=== PATIENT | female | born 1995 | race American Indian/Alaskan Native ===

== ENCOUNTER 2017-10-04 17:30 | Emergency (ER) | payer OTHER ==
[2017-10-04 18:29] VITALS: BP 150/73
[2017-10-04] MEDS ORDERED: ZOFRAN ODT PO ONE (19:40)
--- NOTE | 2017-10-04 19:41 | Emergency Department Report ---
Minor Respiratory - HPI Chief Complaint: Upper Respiratory Infection Stated Complaint: FLU SX day 3 Time Seen by Provider: 10/04/17 19:35 Duration: 2 Days Pain Location: Other (nausea; dec appetite) Severity: mild Minor Respiratory: Yes Able to Tolerate Fluids, Yes Sick Contacts, No Rhinorrhea , No Sore Throat, No Ear Pain, No Cough, No Hemoptysis, No Chest Pain, No Shortness of Breath, No Fever ED Review of Systems ROS: Stated complaint: FLU SX Other details as noted in HPI Comment: All other systems reviewed and negative Constitutional: chills, fever (subj) Gastrointestinal: nausea ED Past Medical Hx - Past Medical History Previous Medical History?: Yes Additional medical history: endometriosis - Surgical History Past Surgical History?: No - Social History Smoking Status: Current Every Day Smoker Substance Use Type: None Minor Respiratory Exam - Exam General: Vital signs noted. No distress. Alert and acting appropriately. HEENT: Yes Moist Mucous Membranes, No Pharyngeal Erythema, No Pharyngeal Exudates, No Rhinorrhea, No Conjuctival Injection, No Frontal Tenderness, No Maxillary Tenderness Ear: Neither TM Bulge, Neither TM Erythema, Neither EAC Pain, Neither EAC Discharge Neck: Yes Supple, No Adenopathy Lungs: Yes Good Air Exchange, No Wheezes, No Ronchi, No Stridor, No Cough, No Labored Respirations, No Retractions, No Use of Accessory Muscles, No Other Abnormal Lung Sounds Heart: Yes Regular, No Murmur Abdomen: Yes Normal Bowel Sounds, No Tenderness, No Peritoneal Signs Skin: No Rash, No Edema Neurologic: Alert and oriented, no deficits. Musculoskeletal: Unremarkable. ED Course Vital Signs 10/04/17 18:22 Temperature 98.2 F Pulse Rate 64 Respiratory 18 Rate Blood Pressure 150/73 Blood Pressure 150/73 [Right] O2 Sat by Pulse 100 Oximetry - Reevaluation(s) Reevaluation #1: 10/04/17 22:29 to er w several day hx flu like s/s states nausea and dec po labs noted taking po fluids ua noted upreg neg flu neg exam wnl unremarkable refused INT line for NS said she would drink water stated she was ready to go. playing on phone entire time in ER vss nad non toxic dc home w viral illness will follow up as instructed. ED Medical Decision Making - Lab Data Result diagrams: 10/04/17 20:52 10/04/17 20:52 - Medical Decision Making see note - Differential Diagnosis urti Critical care attestation.: If time is entered above; I have spent that time in minutes in the direct care of this critically ill patient, excluding procedure time. ED Disposition Clinical Impression: Viral illness Disposition: DC-01 TO HOME OR SELFCARE Is pt being admited?: No Does the pt Need Aspirin: No Condition: Stable Instructions: Viral Syndrome (ED) Additional Instructions: hydrate well motrin or tylenol for fever follow up with pcp or us in 48 hours if not feeling better drink a lot of water advance diet as tolerated Referrals: CORTEZ TINEO MD [Primary Care Provider] - 3-5 Days Time of Disposition: 22:18
[2017-10-04 20:23] LABS: HCG Qualitative,Urine Negative (Negative)
[2017-10-04 20:26] LABS: Bacteria,Urine 1+ /HPF (Negative); Bilirubin,Urine NEG (Negative); Blood,Urine NEG (Negative); Color,Urine Amber (Yellow); Hyaline Casts,Urine 2 /LPF; Mucus,Urine 3+ /HPF; Nitrite,Urine NEG (Negative); Protein,Urine <15 mg/dL mg/dL (Negative); Urobilinogen,Urine < 2.0 mg/dL (<2.0)
[2017-10-04 21:28] LABS: Hematocrit 46.7 % (30.3-42.9); Hemoglobin 15.6 gm/dl (10.1-14.3); Mean Corpuscular HGB Conc 33 % (30-34); Mean Corpuscular Hemoglobin 26 pg (28-32); Mean Corpuscular Volume 79 fl (79-97); Platelet Count 212 K/mm3 (140-440); Red Blood Count 5.91 M/mm3 (3.65-5.03); Red Cell Distribution Width 14.2 % (13.2-15.2)
[2017-10-04 21:30] LABS: Alanine Aminotransferase 50 units/L (7-56); Albumin 4.4 g/dL (3.9-5); BUN/Creatinine Ratio 17; Blood Urea Nitrogen 10 mg/dL (7-17); Calcium 9.4 mg/dL (8.4-10.2); Hemolysis Index 27
[2017-10-04 21:50] LABS: Lipase 16 units/L (13-60)
[2017-10-04 21:59] LABS: Basophils % (Manual) 0 % (0.0-1.8); Eosinophils % (Manual) 0 % (0.0-4.3); Total Cells Counted 100
[2017-10-04 22:03] LABS: Target Cells Rare
[2017-10-04 22:04] LABS: Anisocytosis RARE
[2017-10-04] MEDS ORDERED: MOTRIN PO ONE (22:19)
== END 2017-10-04 22:34 | disposition home or self-care (01) ==
LOC: ED 17:30
DX: B34.9 Viral infection, unspecified (principal); F17.200 Nicotine dependence, unspecified, uncomplicated
CPT/HCPCS: 36415; 80053; 81001; 81025; 82150; 83690; 85007; 85025; 87400; 99283; Q0162